=== PATIENT | male | born 1950 | race Caucasian/White ===

== ENCOUNTER 2021-10-21 12:19 | Outpatient (CLI) | payer MEDICARE | END 2021-10-21 12:20 | disposition home or self-care (01) | LOC: TBSIIMAG 12:19 | PROVIDERS: ATTEND Orthopaedic Surgery | DX: M54.31 Sciatica, right side (principal); M47.816 Spondylosis without myelopathy or radiculopathy, lumbar region; M47.817 Spondylosis without myelopathy or radiculopathy, lumbosacral region; M47.815 Spondylosis without myelopathy or radiculopathy, thoracolumbar region; M89.8X8 Other specified disorders of bone, other site | CPT/HCPCS: 72148 ==

== ENCOUNTER 2021-11-10 12:50 | Outpatient (CLI) | payer MEDICARE ==
[2021-11-10] MEDS ORDERED: Magnevist 469MG/ML 20 ML VIAL ONE ×2 (15:06)
== END 2021-11-10 12:51 | disposition home or self-care (01) ==
LOC: TBSIIMAG 12:50
PROVIDERS: ATTEND Neurological Surgery
DX: D36.10 Benign neoplasm of peripheral nerves and autonomic nervous system, unspecified (principal); M47.811 Spondylosis without myelopathy or radiculopathy, occipito-atlanto-axial region; M47.812 Spondylosis without myelopathy or radiculopathy, cervical region; M48.02 Spinal stenosis, cervical region; M50.322 Other cervical disc degeneration at C5-C6 level; M50.323 Other cervical disc degeneration at C6-C7 level; M47.813 Spondylosis without myelopathy or radiculopathy, cervicothoracic region; M48.03 Spinal stenosis, cervicothoracic region; M25.78 Osteophyte, vertebrae
CPT/HCPCS: 72148; 72149; 72156; 72157; 72158; A9579

== ENCOUNTER 2021-12-06 07:53 | Outpatient (CLI) | payer MEDICARE ==
[2021-12-06] MEDS ORDERED: Magnevist 469MG/ML 20 ML VIAL ONE (14:37)
== END 2021-12-06 07:54 | disposition home or self-care (01) ==
LOC: TBSIIMAG 07:53
PROVIDERS: ATTEND Neurological Surgery
DX: M25.559 Pain in unspecified hip (principal); M79.606 Pain in leg, unspecified
CPT/HCPCS: 72197

== ENCOUNTER 2021-12-06 16:30 | Inpatient (IN) | payer MEDICARE ==
[2021-12-06] MEDS ORDERED: Ketorolac Tromethamine 30 MG/ML VIAL ONE (18:08)
[2021-12-06 18:16] LABS: #Lymphocytes 0.8 thou/uL (1.20-3.40); #Monocytes 0.5 thou/uL (0.11-0.59); #Neutrophils 9.2 thou/uL (1.40-6.50); %Basophils 0.4 % (0.0-1.0); %Eosinophils 0.5 % (0.0-10.0); %Lymphocytes 7.6 % (21.0-51.0); %Neutrophils 86.6 % (42.0-75.0); Mean Corpuscular HGB CONC 32.3 g/dL (32.0-36.0); Mean Corpuscular Hemoglobin 27.1 pg (27.0-31.0); Mean Corpuscular Volume 83.9 fl (78.0-98.0); Mean Platelet Volume 8.6 fL (7.4-10.4); Platelet Count 153 thou/uL (130-400); RBC Distribution Width 14.7 % (11.5-14.5); Red Blood Cell (RBC) Count 5.17 mill/uL (4.70-6.10); White Blood Cell (WBC) Count 10.6 thou/uL (4.8-10.8)
[2021-12-06 18:30] LABS: ALT (SGPT) 21 U/L (8-55); AST (SGOT) 35 U/L (5-34); Alkaline Phosphatase 122 U/L (40-110); Anion Gap 14 mmol/L (10-20); BUN (Urea Nitrogen) 22 mg/dL (8.4-25.7); Bilirubin, Total 0.7 mg/dL (0.2-1.2); Calc. Creatinine Clearance 0 mL/min (70-130); Carbon Dioxide 24 mmol/L (23-31); Chloride 101 mmol/L (98-107); Estimated GFR 81; Globulin 2.9 g/dL (2.4-3.5); Glucose 124 mg/dL (80-115); Protein, Total 6.9 g/dL (5.8-8.1); Sodium 135 mmol/L (136-145)
[2021-12-06] MEDS ORDERED: HYDROmorphone 0.5 MG/0.5 ML SYRINGE ONE ×2 (18:38→20:41)
[2021-12-06] MEDS ORDERED: TETANUS, DIPHTHERIA TOX,ADULT (TDVAX) 0.5 ML VIAL IM ONE (20:04)
[2021-12-06] MEDS ORDERED: hydrALAZINE 20 MG/ML VIAL SLOW IVP PRN (20:04)
[2021-12-06] MEDS ORDERED: Ondansetron PF 4 MG/2 ML Vial IVP PRN (20:04)
[2021-12-06] MEDS ORDERED: traMADol HCl 50 MG TAB PO PRN (20:07)
[2021-12-06] MEDS ORDERED: Sodium Chloride 0.9% 1,000 ML IV SCH (20:15)
[2021-12-06] MEDS: Famotidine/PF 20 mg/2ml Vial SLOW IVP SCH (22:37)
[2021-12-06] MEDS: Melatonin 3 MG TAB PO SCH (22:39)
[2021-12-06] MEDS: Cyclobenzaprine 10 MG TAB PO PRN (22:39)
[2021-12-06] MEDS: Senokot S 8.6-50 MG TAB PO SCH (22:39)
[2021-12-06] MEDS: HYDROcodone/Acetaminophen 10/325 mg Tablet PO PRN (22:39)
[2021-12-06 23:28] VITALS: BMI 25.0
[2021-12-06] MEDS ORDERED: Acetaminophen 500 MG TAB PO SCH (23:59)
[2021-12-07] MEDS: traMADol HCl 50 MG TAB PO SCH ×4 (01:32→18:04)
[2021-12-07 05:38] LABS: #Eosinphils 0.1 thou/uL (0.0-0.7); #Lymphocytes 1.5 thou/uL (1.20-3.40); #Monocytes 0.9 thou/uL (0.11-0.59); #Neutrophils 5.6 thou/uL (1.40-6.50); %Basophils 0.4 % (0.0-1.0); %Eosinophils 0.8 % (0.0-10.0); %Lymphocytes 18.2 % (21.0-51.0); %Monocytes 11.4 % (0.0-10.0); %Neutrophils 69.2 % (42.0-75.0); Hemoglobin 13.7 g/dL (14.0-18.0); Mean Corpuscular HGB CONC 32.1 g/dL (32.0-36.0); Mean Corpuscular Hemoglobin 26.9 pg (27.0-31.0); Mean Corpuscular Volume 83.7 fl (78.0-98.0); Mean Platelet Volume 9.3 fL (7.4-10.4); Platelet Count 158 thou/uL (130-400); RBC Distribution Width 14.9 % (11.5-14.5); Red Blood Cell (RBC) Count 5.09 mill/uL (4.70-6.10); White Blood Cell (WBC) Count 8.1 thou/uL (4.8-10.8)
[2021-12-07 05:58] LABS: Anion Gap 13 mmol/L (10-20); BUN (Urea Nitrogen) 21 mg/dL (8.4-25.7); Calc. Creatinine Clearance 75 mL/min (70-130); Calcium 9.2 mg/dL (7.8-10.44); Carbon Dioxide 25 mmol/L (23-31); Chloride 104 mmol/L (98-107); Estimated GFR 78; Glucose 122 mg/dL (80-115); Magnesium 2.1 mg/dL (1.6-2.6); Potassium 4.7 mmol/L (3.5-5.1); Sodium 137 mmol/L (136-145)
[2021-12-07 06:48] LABS: Phosphorus 4.2 mg/dL (2.3-4.7)
[2021-12-07] MEDS ORDERED: CEFAZOLIN 2 GM in Sodium Chloride 0.9% 100 ML IVPB SCH (07:15)
[2021-12-07] MEDS: HYDROcodone/Acetaminophen 10/325 mg Tablet PO PRN ×2 (07:38→15:22)
[2021-12-07 08:44] LABS: Bacteria/HPF None Seen HPF (None Seen); Bilirubin Negative (Negative); Blood, Urine Negative (Negative); Clarity Clear (Clear); Glucose, Urine (Dipstick) Normal (Negative); Ketone, Urine 20 mg/dL (Negative); Leukocyte Negative Leu/uL (Negative); Nitrite Negative (Negative); Protein, Urine (Dipstick) Negative (Neg-Trace); RBC/HPF 0-3 HPF (0-3); Specific Gravity, Urine 1.015 (1.002-1.036); Squamous Epithelial None Seen HPF (0-3); Urobilinogen Normal mg/dL (Less than 2); WBC/HPF 0-3 HPF (0-3); pH, Urine 6.5 (5.0-9.0)
[2021-12-07 08:50] LABS: Urine Culture Reflex No No
[2021-12-07] MEDS ORDERED: Tamsulosin HCl 0.4 MG CAP PO SCH (09:00)
[2021-12-07] MEDS ORDERED: Amlodipine 5 MG TAB PO SCH ×2 (09:00→21:00)
[2021-12-07] MEDS ORDERED: Polyethylene Glycol 3350 17 GM Packet PO SCH (09:00)
[2021-12-07] MEDS: Famotidine/PF 20 mg/2ml Vial SLOW IVP SCH ×2 (10:25→20:34)
[2021-12-07] MEDS: Senokot S 8.6-50 MG TAB PO SCH ×2 (10:26→20:34)
[2021-12-07] MEDS: Cyclobenzaprine 10 MG TAB PO PRN ×2 (11:35→20:33)
[2021-12-07] MEDS: HYDROmorphone 0.5 MG/0.5 ML SYRINGE SLOW IVP PRN ×5 (13:49→22:38)
[2021-12-07] MEDS: Gabapentin 300 MG CAP PO SCH ×2 (15:21→20:34)
[2021-12-07] MEDS ORDERED: Naloxone HCl 0.4 mg/ml Vial IV PRN (20:32)
[2021-12-07] MEDS: Melatonin 3 MG TAB PO SCH (20:33)
[2021-12-07 22:33] VITALS: BP 142/64; TEMP 99.1
[2021-12-07 22:52] LABS: SARS-CoV-2 NAA Rapid Test Not Detected (NotDetected)
[2021-12-09] MEDS ORDERED: FLU VACC QS2022-23(65YR UP)/PF 240 MCG/0.7 ML SYRINGE IM ONE (23:45)
== END 2021-12-07 22:45 | disposition short-term general hospital (02) | DRG 543 ==
LOC: ERS 16:30 → SURG A 20:06
PROVIDERS: ADMIT Surgery; ATTEND Surgery
DX: M84.559A Pathological fracture in neoplastic disease, hip, unspecified, initial encounter for fracture (principal); C79.51 Secondary malignant neoplasm of bone; Z20.822 Contact with and (suspected) exposure to COVID-19; I11.0 Hypertensive heart disease with heart failure; I50.9 Heart failure, unspecified; F17.210 Nicotine dependence, cigarettes, uncomplicated; Z79.899 Other long term (current) drug therapy; W18.30XA Fall on same level, unspecified, initial encounter; C61 Malignant neoplasm of prostate
CPT/HCPCS: 36415; 72170; 72197; 80048; 80053; 81001; 83735; 84100; 84153; 85025; 93005; 96374; 96375; 96376; A9579; G0390; J0360; J1170; J1885; J7050; S0028; U0002

== ENCOUNTER → 2022-01-07 | Outpatient (CLI) | payer MEDICARE | LOC: PET 12:30 | PROVIDERS: ATTEND Internal Medicine Hematology & Oncology | DX: C18.8 Malignant neoplasm of overlapping sites of colon (principal); C79.51 Secondary malignant neoplasm of bone; C34.90 Malignant neoplasm of unspecified part of unspecified bronchus or lung; K62.89 Other specified diseases of anus and rectum; R93.3 Abnormal findings on diagnostic imaging of other parts of digestive tract; Z96.641 Presence of right artificial hip joint | CPT/HCPCS: 78816; A9552 ==

== ENCOUNTER 2022-01-10 11:24 | Outpatient (CLI) | payer MEDICARE | END 2022-01-10 11:25 | disposition home or self-care (01) | LOC: SCSMRI 11:24 | PROVIDERS: ATTEND Internal Medicine Hematology & Oncology | DX: C18.8 Malignant neoplasm of overlapping sites of colon (principal); C79.51 Secondary malignant neoplasm of bone | CPT/HCPCS: 70553; 82565 ==

== ENCOUNTER 2022-01-14 07:52 | Outpatient (CLI) | payer MEDICARE | END 2022-01-14 07:53 | disposition home or self-care (01) | LOC: CT 07:52 | PROVIDERS: ATTEND Internal Medicine Hematology & Oncology | DX: C18.9 Malignant neoplasm of colon, unspecified (principal); K56.609 Unspecified intestinal obstruction, unspecified as to partial versus complete obstruction; K62.89 Other specified diseases of anus and rectum; N40.0 Benign prostatic hyperplasia without lower urinary tract symptoms; K80.20 Calculus of gallbladder without cholecystitis without obstruction; R91.8 Other nonspecific abnormal finding of lung field | CPT/HCPCS: 74176 ==

== ENCOUNTER 2022-04-12 09:30 | Outpatient (CLI) | payer MEDICARE | END 2022-04-12 09:31 | disposition home or self-care (01) | LOC: PET 09:30 | PROVIDERS: ATTEND Internal Medicine Hematology & Oncology | DX: C18.8 Malignant neoplasm of overlapping sites of colon (principal); C79.51 Secondary malignant neoplasm of bone | CPT/HCPCS: 78816; A9552 ==

== ENCOUNTER 2022-11-24 12:30 | Outpatient (CLI) | payer MEDICARE | END 2022-11-24 12:31 | disposition home or self-care (01) | LOC: PET 12:30 | PROVIDERS: ATTEND Internal Medicine Hematology & Oncology | DX: C18.8 Malignant neoplasm of overlapping sites of colon (principal); C79.51 Secondary malignant neoplasm of bone; M89.9 Disorder of bone, unspecified; R91.8 Other nonspecific abnormal finding of lung field | CPT/HCPCS: 78815; A9552 ==

== ENCOUNTER 2023-06-07 15:40 | Inpatient (IN) | payer MEDICARE ==
[2023-06-07] MEDS ORDERED: Morphine 4 MG/ML VIAL ONE ×2 (16:10→17:37)
[2023-06-07] MEDS ORDERED: Ondansetron PF 4 MG/2 ML Vial ONE (16:25)
[2023-06-07 16:36] LABS: #Basophils Less than 0.03 10x3/uL (0.0-0.2); %Basophils 0.1 % (0.0-1.0); %Eosinophils 0.4 % (0.0-10.0); %Lymphocytes 3.1 % (21.0-51.0); %Monocytes 3.4 % (0.0-10.0); %Neutrophils 91.7 % (42.0-75.0); Hematocrit 27.8 % (42.0-52.0); Hemoglobin 9.1 g/dL (14.0-18.0); Mean Corpuscular HGB CONC 32.7 g/dL (32.0-36.0); Mean Corpuscular Hemoglobin 26.6 pg (27.0-31.0); Mean Corpuscular Volume 81.3 fL (78.0-98.0); Mean Platelet Volume 9.6 fL (7.4-10.4); Platelet Count 137 10x3/uL (130-400); RBC Distribution Width 16.8 % (11.5-14.5); Red Blood Cell (RBC) Count 3.42 mill/uL (4.70-6.10)
[2023-06-07 16:50] LABS: Globulin 2.9 g/dL (2.4-3.5)
[2023-06-07 16:54] LABS: ALT (SGPT) 7 U/L (8-55); AST (SGOT) 14 U/L (5-34); Albumin 2.2 g/dL (3.4-4.8); Alkaline Phosphatase 94 U/L (40-110); Anion Gap 14 mmol/L (10-20); BUN (Urea Nitrogen) 15 mg/dL (8.4-25.7); Bilirubin, Total 1.4 mg/dL (0.2-1.2); Calc. Creatinine Clearance 0 mL/min (70-130); Calcium 8.1 mg/dL (7.8-10.44); Carbon Dioxide 22 mmol/L (23-31); Chloride 98 mmol/L (98-107); Estimated GFR 101; Glucose 135 mg/dL (83-110); Potassium 3.5 mmol/L (3.5-5.1); Protein, Total 5.1 g/dL (5.8-8.1); Sodium 130 mmol/L (136-145)
[2023-06-07] MEDS ORDERED: Acetaminophen 325 MG TAB PO PRN (19:30)
[2023-06-07] MEDS ORDERED: Ondansetron ODT 4 MG TAB SL PRN (19:30)
[2023-06-07] MEDS ORDERED: Ondansetron PF 4 MG/2 ML Vial IVP PRN (19:30)
[2023-06-07 19:48] VITALS: BMI 19.7
[2023-06-07] MEDS ORDERED: Bisacodyl 10 MG SUPP PR PRN (20:29)
[2023-06-07] MEDS: Morphine 4 MG/ML VIAL SLOW IVP PRN (20:44)
[2023-06-07] MEDS: Famotidine/PF 20 mg/2ml Vial SLOW IVP SCH (20:44)
[2023-06-08] MEDS: HYDROcodone/Acetaminophen 7.5/325 mg Tablet PO PRN (00:33)
[2023-06-08] MEDS: Morphine 4 MG/ML VIAL SLOW IVP PRN (09:08)
[2023-06-08] MEDS ORDERED: fentaNYL 25 mcg Patch TD SCH (11:00)
[2023-06-08] MEDS ORDERED: Naloxone HCl 0.4 mg/ml Vial IV PRN (11:06)
[2023-06-08] MEDS: fentaNYL 25 mcg Patch TD SCH (11:31)
[2023-06-08] MEDS: Acetaminophen 325 MG TAB PO SCH (13:59)
[2023-06-08] MEDS ORDERED: Ondansetron PF 4 MG/2 ML Vial IVP PRN (15:32)
[2023-06-08] MEDS ORDERED: hydrOXYzine 25 MG TAB PO PRN (15:33)
[2023-06-08] MEDS ORDERED: Promethazine HCl 12.5 MG in Sodium Chloride 0.9% 50 ML IVPB PRN (16:08)
[2023-06-08] MEDS ORDERED: Polyethylene Glycol 3350 17 GM Packet PO PRN (16:08)
[2023-06-08] MEDS: Pantoprazole 40 MG VIAL IVP SCH (17:09)
[2023-06-08] MEDS: Sodium Chloride 0.9% 1,000 ML IV SCH (17:09)
[2023-06-08] MEDS: Enoxaparin 40 MG (0.4 mL) SYRINGE SC SCH (21:34)
[2023-06-08] MEDS: Mirtazapine 15 MG TAB PO SCH (21:35)
[2023-06-09 04:34] LABS: #Basophils Less than 0.03 10x3/uL (0.0-0.2); %Basophils 0.2 % (0.0-1.0); %Eosinophils 1.4 % (0.0-10.0); %Lymphocytes 11.8 % (21.0-51.0); %Monocytes 8.9 % (0.0-10.0); %Neutrophils 77.4 % (42.0-75.0); Hematocrit 25.8 % (42.0-52.0); Hemoglobin 8.3 g/dL (14.0-18.0); Mean Corpuscular HGB CONC 32.2 g/dL (32.0-36.0); Mean Corpuscular Hemoglobin 26.3 pg (27.0-31.0); Mean Corpuscular Volume 81.6 fL (78.0-98.0); Mean Platelet Volume 10.5 fL (7.4-10.4); Platelet Count 155 10x3/uL (130-400); Red Blood Cell (RBC) Count 3.16 mill/uL (4.70-6.10)
[2023-06-09 04:58] LABS: Globulin 2.8 g/dL (2.4-3.5)
[2023-06-09 05:02] LABS: ALT (SGPT) 8 U/L (8-55); AST (SGOT) 13 U/L (5-34); Alkaline Phosphatase 85 U/L (40-110); Anion Gap 15 mmol/L (10-20); BUN (Urea Nitrogen) 16 mg/dL (8.4-25.7); Bilirubin, Total 1.2 mg/dL (0.2-1.2); Calc. Creatinine Clearance 89 mL/min (70-130); Calcium 8.2 mg/dL (7.8-10.44); Carbon Dioxide 20 mmol/L (23-31); Chloride 105 mmol/L (98-107); Estimated GFR 100; Glucose 99 mg/dL (83-110); Potassium 3.6 mmol/L (3.5-5.1); Protein, Total 4.8 g/dL (5.8-8.1); Sodium 136 mmol/L (136-145)
[2023-06-09] MEDS: Tamsulosin HCl 0.4 MG CAP PO SCH (09:43)
[2023-06-09] MEDS: Megestrol Acetate 800 MG/20 ML UDCUP PO SCH (09:44)
[2023-06-09] MEDS: Pantoprazole 40 MG VIAL IVP SCH (09:47)
[2023-06-09 10:44] LABS: Bacteria/HPF None Seen HPF (None Seen); Bilirubin Negative (Negative); Blood, Urine Negative (Negative); CAUTI Indications for Culture Dysuria,urgency,freq; Clarity Clear (Clear); Glucose, Urine (Dipstick) Normal (Negative); Ketone, Urine 40 mg/dL (Negative); Leukocyte Negative Leu/uL (Negative); Nitrite Negative (Negative); Protein, Urine (Dipstick) Negative (Neg-Trace); RBC/HPF 0-3 HPF (0-3); Specific Gravity, Urine 1.019 (1.002-1.036); Squamous Epithelial None Seen HPF (0-3); Urobilinogen Normal mg/dL (Less than 2)
[2023-06-09 10:47] LABS: Urine Culture Reflex No No
[2023-06-09] MEDS: Lisinopril 5 MG TAB PO SCH (10:59)
[2023-06-09 12:53] VITALS: BMI 19.7
[2023-06-09] MEDS: Ketorolac Tromethamine 30 MG (1 mL) VIAL IVP PRN (13:30)
[2023-06-09] MEDS: Cefepime 2 GM in Sodium Chloride 0.9% 100 ML IVPB SCH (20:49)
[2023-06-10 04:59] LABS: #Basophils Less than 0.03 10x3/uL (0.0-0.2); %Basophils 0.2 % (0.0-1.0); %Eosinophils 1.3 % (0.0-10.0); %Lymphocytes 7.9 % (21.0-51.0); %Monocytes 8.1 % (0.0-10.0); %Neutrophils 82.1 % (42.0-75.0); Hematocrit 26.1 % (42.0-52.0); Hemoglobin 8.3 g/dL (14.0-18.0); Mean Corpuscular HGB CONC 31.8 g/dL (32.0-36.0); Mean Platelet Volume 9.5 fL (7.4-10.4); Platelet Count 161 10x3/uL (130-400); RBC Distribution Width 17.3 % (11.5-14.5); Red Blood Cell (RBC) Count 3.07 mill/uL (4.70-6.10)
[2023-06-10 05:37] LABS: ALT (SGPT) 9 U/L (8-55); AST (SGOT) 17 U/L (5-34); Alkaline Phosphatase 90 U/L (40-110); Anion Gap 14 mmol/L (10-20); BUN (Urea Nitrogen) 18 mg/dL (8.4-25.7); Bilirubin, Total 1.2 mg/dL (0.2-1.2); Calc. Creatinine Clearance 98 mL/min (70-130); Calcium 8.3 mg/dL (7.8-10.44); Carbon Dioxide 19 mmol/L (23-31); Chloride 106 mmol/L (98-107); Estimated GFR 103; Glucose 122 mg/dL (83-110); Potassium 3.5 mmol/L (3.5-5.1); Sodium 135 mmol/L (136-145)
[2023-06-10] MEDS: Acetaminophen 650 MG/20.3 ML UDCUP PO SCH ×2 (12:42→17:39)
[2023-06-11 06:02] LABS: #Basophils Less than 0.03 10x3/uL (0.0-0.2); %Basophils 0.3 % (0.0-1.0); %Eosinophils 7.7 % (0.0-10.0); %Monocytes 8.8 % (0.0-10.0); %Neutrophils 65.4 % (42.0-75.0); Hematocrit 21.3 % (42.0-52.0); Hemoglobin 6.8 g/dL (14.0-18.0); Mean Corpuscular HGB CONC 31.9 g/dL (32.0-36.0); Mean Corpuscular Hemoglobin 26.8 pg (27.0-31.0); Mean Corpuscular Volume 83.9 fL (78.0-98.0); Mean Platelet Volume 9.7 fL (7.4-10.4); Platelet Count 194 10x3/uL (130-400); RBC Distribution Width 17.4 % (11.5-14.5); Red Blood Cell (RBC) Count 2.54 mill/uL (4.70-6.10)
[2023-06-11 06:17] LABS: Globulin 2.5 g/dL (2.4-3.5)
[2023-06-11 06:21] LABS: ALT (SGPT) 8 U/L (8-55); AST (SGOT) 13 U/L (5-34); Albumin 1.7 g/dL (3.4-4.8); Alkaline Phosphatase 68 U/L (40-110); Anion Gap 12 mmol/L (10-20); BUN (Urea Nitrogen) 18 mg/dL (8.4-25.7); Bilirubin, Total 0.6 mg/dL (0.2-1.2); Calc. Creatinine Clearance 96 mL/min (70-130); Calcium 8.4 mg/dL (7.8-10.44); Carbon Dioxide 22 mmol/L (23-31); Chloride 107 mmol/L (98-107); Estimated GFR 102; Glucose 91 mg/dL (83-110); Potassium 3.2 mmol/L (3.5-5.1); Protein, Total 4.2 g/dL (5.8-8.1); Sodium 138 mmol/L (136-145)
[2023-06-11] MEDS: Pantoprazole DR 40 MG TAB PO SCH (09:53)
[2023-06-11] MEDS: Potassium Chloride 20 MEQ TAB PO SCH (09:54)
[2023-06-11 11:10] LABS: Hematocrit 23.6 % (42.0-52.0); Hemoglobin 7.5 g/dL (14.0-18.0); Platelet Count 216 10x3/uL (130-400)
[2023-06-11] MEDS: fentaNYL 25 mcg Patch TD SCH (11:17)
[2023-06-11] MEDS ORDERED: Iopamidol-370 76% 500 ML MDV (1 ML CHARGE) ONE (11:41)
[2023-06-12 06:42] LABS: Hemoglobin 7.4 g/dL (14.0-18.0); Platelet Count 255 10x3/uL (130-400)
[2023-06-12 07:01] LABS: Anion Gap 12 mmol/L (10-20); BUN (Urea Nitrogen) 13 mg/dL (8.4-25.7); Calc. Creatinine Clearance 93 mL/min (70-130); Calcium 8.6 mg/dL (7.8-10.44); Carbon Dioxide 22 mmol/L (23-31); Chloride 107 mmol/L (98-107); Estimated GFR 101; Glucose 88 mg/dL (83-110); Potassium 3.3 mmol/L (3.5-5.1); Sodium 138 mmol/L (136-145)
[2023-06-12] MEDS: Potassium Chloride 20 MEQ TAB PO SCH (09:47)
[2023-06-12] MEDS: Morphine IR Tab 15 MG TAB PO PRN (20:51)
[2023-06-13] MEDS ORDERED: Loperamide HCl 2 MG CAP PO PRN (08:34)
[2023-06-13 08:40] LABS: Anion Gap 12 mmol/L (10-20); BUN (Urea Nitrogen) 11 mg/dL (8.4-25.7); Calc. Creatinine Clearance 92 mL/min (70-130); Calcium 8.4 mg/dL (7.8-10.44); Carbon Dioxide 20 mmol/L (23-31); Chloride 110 mmol/L (98-107); Estimated GFR 101; Glucose 90 mg/dL (83-110); Potassium 3.4 mmol/L (3.5-5.1); Sodium 139 mmol/L (136-145)
[2023-06-13 09:16] LABS: #Basophils Less than 0.03 10x3/uL (0.0-0.2); %Basophils 0.4 % (0.0-1.0); %Eosinophils 13.5 % (0.0-10.0); %Lymphocytes 35.1 % (21.0-51.0); %Monocytes 15.1 % (0.0-10.0); %Neutrophils 35.1 % (42.0-75.0); Hematocrit 25.1 % (42.0-52.0); Hemoglobin 7.9 g/dL (14.0-18.0); Mean Corpuscular HGB CONC 31.5 g/dL (32.0-36.0); Mean Corpuscular Hemoglobin 26.6 pg (27.0-31.0); Mean Corpuscular Volume 84.5 fL (78.0-98.0); Mean Platelet Volume 9.1 fL (7.4-10.4); Platelet Count 296 10x3/uL (130-400); RBC Distribution Width 18.2 % (11.5-14.5); Red Blood Cell (RBC) Count 2.97 mill/uL (4.70-6.10)
[2023-06-13 11:00] LABS: Globulin 2.8 g/dL (2.4-3.5)
[2023-06-13 11:05] LABS: ALT (SGPT) 7 U/L (8-55); AST (SGOT) 12 U/L (5-34); Albumin 1.9 g/dL (3.4-4.8); Alkaline Phosphatase 65 U/L (40-110); Bilirubin, Total 0.3 mg/dL (0.2-1.2); Protein, Total 4.7 g/dL (5.8-8.1)
[2023-06-13] MEDS: Potassium Chloride 20 MEQ TAB PO SCH ×2 (11:15→21:41)
[2023-06-14 05:17] VITALS: BP 145/71; TEMP 98.2
[2023-06-14 05:24] LABS: #Basophils Less than 0.03 10x3/uL (0.0-0.2); %Basophils 0.8 % (0.0-1.0); %Eosinophils 12.1 % (0.0-10.0); %Lymphocytes 31.6 % (21.0-51.0); %Monocytes 18.8 % (0.0-10.0); %Neutrophils 34.7 % (42.0-75.0); Hemoglobin 7.7 g/dL (14.0-18.0); Mean Corpuscular HGB CONC 32.1 g/dL (32.0-36.0); Mean Corpuscular Hemoglobin 26.3 pg (27.0-31.0); Mean Corpuscular Volume 81.9 fL (78.0-98.0); Platelet Count 320 10x3/uL (130-400); RBC Distribution Width 18.4 % (11.5-14.5); Red Blood Cell (RBC) Count 2.93 mill/uL (4.70-6.10)
[2023-06-14 06:09] LABS: Globulin 2.8 g/dL (2.4-3.5)
[2023-06-14 06:14] LABS: ALT (SGPT) 6 U/L (8-55); AST (SGOT) 10 U/L (5-34); Albumin 1.9 g/dL (3.4-4.8); Alkaline Phosphatase 72 U/L (40-110); Anion Gap 13 mmol/L (10-20); BUN (Urea Nitrogen) 11 mg/dL (8.4-25.7); Bilirubin, Total 0.3 mg/dL (0.2-1.2); Calc. Creatinine Clearance 92 mL/min (70-130); Calcium 8.6 mg/dL (7.8-10.44); Carbon Dioxide 20 mmol/L (23-31); Chloride 110 mmol/L (98-107); Estimated GFR 101; Glucose 84 mg/dL (83-110); Potassium 4.1 mmol/L (3.5-5.1); Protein, Total 4.7 g/dL (5.8-8.1); Sodium 139 mmol/L (136-145)
== END 2023-06-14 13:05 | disposition home or self-care (01) | DRG 947 ==
LOC: ERS 15:40 → T4-B 17:46 → OBSVTOIN 06-08 13:26 → MSONC 06-08 13:53
PROVIDERS: ADMIT Hospitalist; ATTEND Family Medicine
DX: G89.3 Neoplasm related pain (acute) (chronic) (principal); E43 Unspecified severe protein-calorie malnutrition; C19 Malignant neoplasm of rectosigmoid junction; M84.451A Pathological fracture, right femur, initial encounter for fracture; K80.00 Calculus of gallbladder with acute cholecystitis without obstruction; E87.1 Hypo-osmolality and hyponatremia; Z68.1 Body mass index [BMI] 19.9 or less, adult; C78.01 Secondary malignant neoplasm of right lung; C78.02 Secondary malignant neoplasm of left lung; C79.51 Secondary malignant neoplasm of bone; Z51.5 Encounter for palliative care; I10 Essential (primary) hypertension; N40.0 Benign prostatic hyperplasia without lower urinary tract symptoms; D64.9 Anemia, unspecified; R91.8 Other nonspecific abnormal finding of lung field; K76.89 Other specified diseases of liver; Z92.21 Personal history of antineoplastic chemotherapy; Z92.3 Personal history of irradiation; Z79.899 Other long term (current) drug therapy; F17.220 Nicotine dependence, chewing tobacco, uncomplicated
CPT/HCPCS: 36415; 36416; 70450; 71045; 71275; 72070; 72100; 74177; 76705; 78226; 80048; 80053; 81001; 83880; 84484; 85014; 85018; 85025; 85049; 87040; 87086; 93005; 96361; 96374; 96375; 96376; A9537; C9113; G0378; J0692; J1642; J1650; J1885; J2270; J2405; J3490; J7050; Q9967; S0028